=== PATIENT | female | born 1995 | race American Indian/Alaskan Native ===

== ENCOUNTER 2020-05-20 09:14 | Inpatient (IN) | payer MEDICAID, OTHER ==
[2020-05-20] MEDS ORDERED: METOCLOPRAMIDE 10 MG/2 ML INJ IV NR (09:50)
[2020-05-20] MEDS ORDERED: BICITRA ORAL LIQD 30ML PO NR (09:50)
[2020-05-20] MEDS ORDERED: FAMOTIDINE 20 MG/2 ML INJ IV NR (09:50)
[2020-05-20] MEDS ORDERED: ceFAZolin/Water 2 GM/20 ML 2 GM/20 ML SYRINGE IV NR (10:00)
[2020-05-20] MEDS ORDERED: OXYTOCIN DRIP 30 UNITS/500 ML BAG IV SCH ×2 (10:00→14:00)
[2020-05-20 10:14] LABS: Basophils % (Auto) 0.3 % (0.0-1.8); Eosinophils # (Auto) 0.1 K/mm3 (0.0-0.4); Hematocrit 33.5 % (30.3-42.9); Hemoglobin 11.1 gm/dl (10.1-14.3); Lymphocytes # (Auto) 2.3 K/mm3 (1.2-5.4); Lymphocytes % (Auto) 35.7 % (13.4-35.0); Mean Corpuscular HGB Conc 33 % (30-34); Mean Corpuscular Volume 82 fl (79-97); Monocytes # (Auto) 0.9 K/mm3 (0.0-0.8); Monocytes % (Auto) 13.7 % (0.0-7.3); Platelet Count 212 K/mm3 (140-440); Red Blood Count 4.09 M/mm3 (3.65-5.03); Red Cell Distribution Width 13.8 % (13.2-15.2)
[2020-05-20] MEDS: LACTATED RINGERS 1,000 ML IV SCH ×2 (10:31→11:33)
--- NOTE | 2020-05-20 10:35 | History and Physical Report ---
History of Present Illness Date of examination: 05/20/20 Date of admission: 05/20/20 09:16 Chief complaint: elective repeat section History of present illness: 25yo at 40.0 weeks presents for elective repeat section. no complaints. [facility] P[facility] in [facility]. Past History Past Surgical History: section Social history: no significant social history - Obstetrical History Expected Date of Delivery: 05/20/20 Actual Gestation: 40 Week(s) 0 Day(s) : 4 Para: 1 Spontaneous Abortions: 1 Induced : 1 Medications and Allergies Allergies Allergy/AdvReac Type Severity Reaction Status Date / Time No Known Allergies Allergy Unverified 05/15/20 09:52 Active Meds: Active Medications Citric Acid/Sodium Citrate (Bicitra Oral Liqd 30ml) 30 ml PO ONCE NR Stop: 05/20/20 12:00 Famotidine (Famotidine 20 Mg/2 Ml Inj) 20 mg IV ONCE NR Stop: 05/20/20 12:00 Lactated Ringer's (Lactated Ringers) 1,000 mls @ 2,250 mls/hr IV PREOP CAITLIN Stop: 05/21/20 10:27 Last Admin: 05/20/20 10:31 Dose: 2,250 mls/hr Documented by: Oxytocin/Sodium Chloride (Pitocin/Ns 30 Unit/500ml) 30 units in 500 mls @ 0 mls/hr IV TITR CAITLIN; Protocol Cefazolin Sodium (Ancef/Sterile Water 2 Gm/20 Ml) 2 gm in 20 mls @ 80 mls/hr IV PREOP NR; Protocol Stop: 05/20/20 12:00 Metoclopramide HCl (Metoclopramide 10 Mg/2 Ml Inj) 10 mg IV ONCE NR Stop: 05/20/20 12:00 - Vital Signs Vital signs: Vital Signs Temp Pulse Resp BP Pulse Ox 98.6 F 89 16 113/73 99 05/20/20 10:14 05/20/20 10:14 05/20/20 10:14 05/20/20 10:14 05/20/20 10:14 Temp Pulse Resp BP Pulse Ox 98.6 F 77 16 113/73 100 05/20/20 10:14 05/20/20 10:29 05/20/20 10:14 05/20/20 10:14 05/20/20 10:29 Results Result Diagrams: 05/20/20 09:52 Abnormal lab results 05/20/20 Range/Units 09:52 MCH 27 L (28-32) pg Lymph % (Auto) 35.7 H (13.4-35.0) % Meagher % (Auto) 13.7 H (0.0-7.3) % Meagher # (Auto) 0.9 H (0.0-0.8) K/mm3 All other labs normal. Assessment and Plan npo, commission broker to or for procedure informed consent obtained Jorje Maki MD
--- NOTE | 2020-05-20 11:04 | Anesthesia Consultation ---
Anesthesia Consult and Med Hx Date of service: 05/20/20 - Airway Anesthetic Teeth Evaluation: Good ROM Head & Neck: Adequate Mental/Hyoid Distance: Adequate Mallampati Class: Class II Intubation Access Assessment: Probably Good - Pulmonary Exam CTA: Yes - Cardiac Exam Cardiac Exam: RRR - Pre-Operative Health Status ASA Pre-Surgery Classification: ASA2 Proposed Anesthetic Plan: Spinal - Pulmonary Hx Asthma: No COPD: No Hx Pneumonia: No - Cardiovascular System Hx Hypertension: No - Central Nervous System Hx Seizures: No Hx Psychiatric Problems: No - Endocrine Hx Renal Disease: No Hx End Stage Renal Disease: No Hx Hypothyroidism: No Hx Hyperthyroidism: No - Hematic Hx Anemia: No Hx Sickle Cell Disease: No - Other Systems Hx Alcohol Use: No
--- NOTE | 2020-05-20 11:05 | Anesthesia Day of Surgery ---
Anesthesia Day of Surgery - Day of Surgery Patient Examined: Yes Patient H&P Reviewed: Yes Patient is NPO: Yes
[2020-05-20] MEDS ORDERED: MIDAZOLAM 2 MG/2 ML INJ ONE (12:36)
[2020-05-20] MEDS ORDERED: KETAMINE/STERILE WATER 50 MG/ML SYRINGE ONE (12:36)
[2020-05-20] MEDS ORDERED: propofoL 200 MG/20 ML VIAL IV ONE (12:43)
[2020-05-20] MEDS ORDERED: KETOROLAC 30 MG/1 ML INJ ONE (12:47)
[2020-05-20] MEDS ORDERED: dexAMETHasone 20 MG/5 ML VIAL ONE (12:47)
[2020-05-20] MEDS ORDERED: BUPIVACAINE /DEX-WATER 0.75% (2 ML) AMPULE INFILTRATI ONE (12:47)
[2020-05-20] MEDS ORDERED: BUPIVACAINE/PF (0.5%) 5 MG/1 ML 30 ML VIAL INFILTRATI ONE (12:47)
[2020-05-20] MEDS ORDERED: OXYTOCIN 10 UNIT/1 ML INJ ONE (12:48)
[2020-05-20] MEDS ORDERED: PHENYLEPHRINE/NS 1,000 MCG/10 ML SYRINGE (OR USE) IV ONE (13:00)
[2020-05-20] MEDS ORDERED: LANOLIN/ZINC/DIMETHICONE (LANSINOH) 7 GM TP PRN (13:19)
[2020-05-20] MEDS ORDERED: SENNOSIDES 8.6 MG TAB PO PRN (13:19)
[2020-05-20] MEDS ORDERED: SIMETHICONE 80 MG CHEW TAB PO PRN (13:19)
[2020-05-20] MEDS ORDERED: MAGNESIUM HYDROXIDE (MOM) ORAL LIQD UDC PO PRN (13:19)
[2020-05-20] MEDS ORDERED: WITCH HAZEL/ GLYCERIN PAD TP PRN (13:19)
[2020-05-20] MEDS ORDERED: MORPHINE 4 MG/1 ML INJ IV PRN (13:19)
[2020-05-20] MEDS ORDERED: ONDANSETRON 4 MG/2 ML INJ IV PRN (13:19)
[2020-05-20] MEDS ORDERED: MORPHINE 2 MG/1 ML INJ IV PRN (13:19)
[2020-05-20] MEDS ORDERED: IBUPROFEN 600 MG TAB PO PRN (13:19)
[2020-05-20] MEDS ORDERED: KETOROLAC 30 MG/1 ML INJ IV PRN (13:19)
[2020-05-20] MEDS ORDERED: NALOXONE 0.4 MG/1 ML INJ IV PRN (13:19)
--- NOTE | 2020-05-20 13:31 | Procedure Note ---
OB Delivery Note - Delivery Date of Delivery: 05/20/20 Surgeon: ZOYA MASON Estimated blood loss: other (800ml) - Section Postop diagnosis: same (delivered) section procedure: repeat low transverse Disposition: PACU Complications: none Narrative: Preop diagnosis: IUP at 40 weeks, previous section x1, presents for elective repeat section Postop diagnosis: Same, delivered Procedure: Repeat low transverse section via Pfannenstiel incision Surgeon: Dr. Zoya Mason Anesthesia spinal Complications none EBL 800 ml IV fluids 900 mL Urine output 50 mL, clear Drains Mcnamara to gravity Findings: Viable male with weight 3867gms and 9/9 normal uterus tubes and ovaries bilaterally Procedure: Patient was consented in OB triage, taken to the operating room where she received excellent spinal anesthesia. She was then placed in the dorsal supine position with a leftward tilt. The abdomen was prepped and draped in a sterile fashion, and a timeout was verified. Adequate anesthesia was confirmed prior to the skin incision. A Pfannenstiel skin incision was made with a scalpel taken down to the underlying structures and the fascia was incised in the midline. The incision was extended laterally with curved Barry scissors, the superior and inferior aspects of the fascial incisions were grasped with Radha clamps and the rectus muscles dissected sharply. The abdomen was entered bluntly in the midline carried down inferiorly with good visualization of the bladder. The vesicouterine peritoneum was tented with Danish forceps and incised in the midline with Metzenbaum scissors and the vesicouterine peritoneum taken down sharply. Bladder blade was inserted, the uterine incision was made sharply with a scalpel. The inferior and superior aspect of the uterine incisions were extended bluntly, the baby's head was delivered atraumatically. The remainder of the delivery was uneventful,no loose nuchal cord. The cord was clamped and cut and baby handed to waiting NICU team. An intact placenta with three-vessel cord delivered manually. The uterus was then cleared of all clots and debris and the uterus exteriorized. The uterine incision was closed with 2 layers of 0 chromic with excellent hemostasis. The abdomen was then irrigated with warm normal saline and the uterus placed back into the abdomen atraumatically. A second look at the uterine incision assured hemostasis. The peritoneum was closed with 3-0 Vicryl, the rectus muscles approximated with 3-0 Vicryl, and the fascia closed with 0 Vicryl in the usual fashion. The subcuticular structures were closed with interrupted sutures of 3-0 Vicryl and the skin closed with 4-0 Monocryl. A pressure dressing was applied. All sponge needle and instrument counts were correct x2. There were no complications. Mom and baby to the recovery area in stable condition. EBL 800mL CKeegan Mason MD - Infant A at 1 minute: 9 at 5 minutes: 9 Gender: Male (3867gms)
--- NOTE | 2020-05-20 13:43 | Progress Note ---
Spinal Anesthesia Block - Spinal Anesthesia Block Start Time: 11:55 Stop Time: 12:00 Performed by:: MICHAEL AMAYA Procedure: Sitting, sterile betadine prep/drape, 1% lidocaine skin local, 25G spinal needle + introduced at L3-4, + CSF, - Heme, 1.2 ml 0.75% bupivacaine + 10 mcg dexmedetomidine injected, drape removed, patient positioned supine with left uterine displacement, and spinal level verified to be adequate prior to surgery. Jorge JEFFERSON
--- NOTE | 2020-05-20 13:44 | Progress Note ---
Regional Anesthesia Block - Regional Anesthesia Block Start Time: 13:55 Stop Time: 14:00 Performed By:: MICHAEL AMAYA Procedure: U/S guided bilateral tap block performed for post-operative pain requested by Dr. Maki. H&P & labs reviewed. Procedure explained, questions answered, consent obtained. Patient in the supine position with ekg, blood pressure cuff and pulse ox on and working in PACU. Timeout performed immediately before start of procedure. Probe placed in the mid-axillary line and the external oblique, internal oblique, and transverse abdominus muscles identified. Skin was cleansed with 0.5% Chlorahexadine and allowed to dry. A 4" 20 G Conner echogenic needle was advanced in plane until the tip was in the fascial plane between the internal oblique and the transverse abdominus. After negative aspiration 35 ml/side of [30 ml 0.5% Bupivacaine], [25 mcg dexmedetomidine], [10 mg dexamethasone], and [40 ml sterile saline] was injected in 5 ml increments with negative aspiration in between. Patient tolerated procedure well. Jorge JEFFERSON
[2020-05-20] MEDS ORDERED: METHYLERGONOVINE MALEATE 0.2 MG/ML VIAL IM ONE (14:48)
[2020-05-20] MEDS ORDERED: METHYLERGONOVINE MALEATE 0.2 MG/ML VIAL IM SCH (15:00)
[2020-05-20] MEDS: KETOROLAC 30 MG/1 ML INJ IV PRN ×2 (16:36→23:09)
[2020-05-21 03:14] LABS: Hematocrit 32.7 % (30.3-42.9); Hemoglobin 10.4 gm/dl (10.1-14.3)
--- NOTE | 2020-05-21 09:36 | Post Anesthesia Evaluation ---
- Post Anesthesia Evaluation Patient Participated: Yes Airway Patent: Yes Stable Respiratory Function: Yes Nausea/Vomiting: No Temp > 96.8F: Yes Pain Manageable: Yes Adequeate Hydration: Yes Anesthesia Complications: No Block Receding Appropriately: Yes
[2020-05-21] MEDS: IBUPROFEN 800 MG TAB PO PRN ×2 (10:05→16:35)
--- NOTE | 2020-05-21 13:27 | Progress Note ---
Assessment and Plan POD # 1 A: S/P Repeat LTCS COVID pos p: Continue routine pp care Encourage ambulation and hydration D/C home within 24-48 hrs if stable Subjective - Subjective Date of service: 05/21/20 Principal diagnosis: s/p repeat LTCS Patient reports: appetite normal, voiding normally, pain well controlled, ambulating normally [place]: doing well, bottle feeding Objective - Vital Signs Latest vital signs: Vital Signs Temp Pulse Resp BP BP Pulse Ox 05/21/20 12:47 98.4 F 76 20 100/63 99 05/21/20 08:46 98.2 F 64 20 115/68 100 05/21/20 06:00 98.9 F 55 L 18 138/86 05/21/20 02:10 98.2 F 60 20 138/95 99 05/20/20 20:30 98.2 F 63 20 143/90 05/20/20 15:49 97.3 F L 59 L 158/98 100 Intake and Output 05/20/20 05/21/20 05/21/20 22:59 06:59 14:59 Intake Total 240 240 200 Output Total 2200 Balance 240 -1960 200 Intake: Oral 240 240 200 Output: Urine 2200 Indwelling Catheter 1600 Void 600 Other: Total, Intake Amount 240 240 200 Total, Output Amount 600 # Voids Void 1 1 - Exam Breasts: Present: normal Lungs: Present: Normal air movement Abdomen: Present: normal appearance, soft, normal bowel sounds, other (passing gas) Vulva: both: normal Uterus: Present: normal, firm, fundal height below umbilicus Extremities: Present: normal Incision: Present: normal, dry, intact, dressed - Labs Labs: Abnormal lab results 05/20/20 Range/Units 09:51 Coronavirus (PCR) Positive A (Negative)
[2020-05-21] MEDS: HYDROcodone/ACETAMINOPHEN 5-325 MG TAB PO PRN (23:44)
[2020-05-22] MEDS: HYDROcodone/ACETAMINOPHEN 5-325 MG TAB PO PRN (06:16)
[2020-05-22] MEDS: IBUPROFEN 800 MG TAB PO PRN (09:28)
--- NOTE | 2020-05-22 11:35 | Discharge Summary ---
Providers - Providers Date of Admission: 05/20/20 09:16 Date of discharge: 05/22/20 Attending physician: NELSON RIVER Primary care physician: BETH AVERY JR, MD Hospitalization Reason for admission: section Delivery: Procedure: repeat low transverse Episiotomy: none Laceration: none Incision: dry, intact (rita intact, no drainage or bleeding noted) Other procedures: none complications: none Discharge diagnosis: IUP at term delivered Coker baby: male Hospital course: See admission H & P; OB operative summary and PP progress notes Condition at discharge: Stable Disposition: DC-01 TO HOME OR SELFCARE - Discharge Diagnoses (1) Status post repeat low transverse section Status: Acute (2) Anemia Status: Acute Qualifiers: Anemia type: other cause Other causes of anemia: acute posthemorrhagic Qualified Code(s): D62 - Acute posthemorrhagic anemia Comment: Asymptomatic (3) COVID-19 determined by clinical diagnostic criteria Status: Acute Comment: Asymptomatic Plan - Discharge Medications Prescriptions: Ibuprofen [Motrin] 600 mg PO Q8H PRN #60 tablet PRN Reason: Pain oxyCODONE /ACETAMINOPHEN [Percocet 5/325] 1 tab PO Q6HR PRN #20 tablet PRN Reason: Pain - Provider Discharge Summary Activity: routine, no sex for 6 weeks, no heavy lifting 4 weeks, no strenuous exercise Diet: other (Iron rich diet) Instructions: routine Additional instructions: [] Smoking cessation referral if applicable(refer to patient education folder for contact #) [] Refer to [facility] Booklet Call your doctor immediately for: * Fever > 100.5 * Heavy vaginal bleeding ( >1 pad per hour) * Severe persistent headache * Shortness of breath * Reddened, hot, painful area to leg or breast * Drainage or odor from incision. * Keep incision clean and dry at all times and follow doctor's instructions regarding bathing/showering * Quarentine for 14 days after discharge * F/U with clinic for staple removal in 7 days, CALL FIRST to inform of Covid status - Follow up plan Follow up: BETH AVERY JR, MD [Primary Care Provider] - 7 Days
[2020-05-22 12:37] VITALS: BP 105/51
== END 2020-05-22 14:00 | disposition home or self-care (01) | DRG 765 ==
LOC: TRG 09:14 → APU 09:16 → OB 14:49
PROVIDERS: ADMIT Obstetrics & Gynecology; ATTEND Obstetrics & Gynecology
PROC: 10D00Z1 Extraction of Products of Conception, Low, Open Approach (ICD-10-PCS; principal; 2020-05-20)
PROC: 3E0T3BZ Introduction of Anesthetic Agent into Peripheral Nerves and Plexi, Percutaneous Approach (ICD-10-PCS; 2020-05-21)
DX: O34.211 Maternal care for low transverse scar from previous cesarean delivery (principal); U07.1 COVID-19; O48.0 Post-term pregnancy; O98.52 Other viral diseases complicating childbirth; D62 Acute posthemorrhagic anemia; O99.02 Anemia complicating childbirth; Z3A.40 40 weeks gestation of pregnancy; Z37.0 Single live birth
CPT/HCPCS: 36415; 85014; 85018; 85025; 86592; 86850; 86900; 86901; G0378; A6250; J0690; J1100; J1885; J2210; J2250; J2270; J2370; J2590; J2704; J2765; J3490; J7120; U0003